=== PATIENT | female | born 1975 | race Caucasian/White ===

== ENCOUNTER 2022-02-12 13:51 | Outpatient (CLI) | payer BC | END 2022-02-12 13:52 | disposition home or self-care (01) | LOC: BICMAMMO 13:51 | PROVIDERS: ATTEND Internal Medicine | DX: Z12.31 Encounter for screening mammogram for malignant neoplasm of breast (principal); Z98.82 Breast implant status | CPT/HCPCS: 77063; 77067 ==

== ENCOUNTER 2024-11-03 10:58 | Outpatient (CLI) | payer BC | END 2024-11-03 10:59 | disposition home or self-care (01) | LOC: BICCT 10:58 | PROVIDERS: ATTEND Internal Medicine Gastroenterology | DX: R10.32 Left lower quadrant pain (principal); R19.4 Change in bowel habit; E55.9 Vitamin D deficiency, unspecified; K76.9 Liver disease, unspecified | CPT/HCPCS: 74177 ==